=== PATIENT | male | born 1970 | race Caucasian/White ===

== ENCOUNTER 2016-12-10 15:26 | Inpatient (IN) | payer MEDICARE, SELFPAY ==
[2016-12-10 13:37] LABS: Blood Urea Nitrogen 18 mg/dL (9-20); Non-African American GFR(MDRD) >60 (>60 ml/min/1.73 sqM)
--- NOTE | 2016-12-10 14:55 | CT ---
EXAMINATION TYPE: CT chest w con DATE OF EXAM: 12/10/2016 2:13 PM COMPARISON: Previous study dated 05/31/2012. HISTORY: SOB, lung CA CT DLP: 525 mGycm Automated exposure control for dose reduction was used. CONTRAST: CT scan of the chest is performed with IV Contrast, patient injected with 100 mL of Omnipaque 300. FINDINGS: There are large bulla in the upper lobes bilaterally. There is diffuse emphysematous johnson e present. There is a left-sided pneumothorax. This is under tension. There is an air-fluid level pre sent on the left. There is worsening atelectasis at the left lung base. The third and fourth order bronchi appear atten uated. There is a 2 cm spiculated mass adjacent to the lateral chest wall on the right. The mediastinum is deviated towards the right. There is a 1.4 cm pretracheal lymph node. No definite hilar adenopathy is seen. There is no pericardi al fluid seen. Visualized portions of the upper abdomen are unremarkable. IMPRESSION: 1. Tension pneumothorax on the left. 2. Dramatic emphysematous and bullous change bilaterally. 3. Worsening left basilar atelectasis. 4. 2 cm spiculated mass adjacent to the lateral chest wall on the right. 5. Nonspecific adenopathy. A Red message has been communicated to Sandi Ortega MD via the [employer] Critical Result system on 12/10/2016 2:52 PM, Message ID [id number].
--- NOTE | 2016-12-10 16:34 | ED ---
SOB HPI - General Chief Complaint: Shortness of Breath Stated Complaint: collapsed lung-from CT Time Seen by Provider: 12/10/16 15:30 Source: patient, RN/MD, RN notes reviewed Mode of arrival: ambulatory Limitations: no limitations - History of Present Illness Initial Comments: This is a 38-year-old male with a history of esophageal cancer with resection and gastric pull-through as well as a resection of a small portion of 1 who apparently fell a popping sensation 2 days ago with some shortness of breath. He was seen by his surveying or spatial science technician today CAT scan was performed did show evidence of loculation and pneumothorax on the left lung field. Patient denies any fevers chills nausea vomiting sweats at this time he denies any cough or other symptoms at this time. He was brought over to the emergency department for further evaluation. MD Complaint: shortness of breath - Related Data Home Medications Medication Instructions Recorded Confirmed Cetirizine HCl [Zyrtec] 10 mg PO DAILY 12/10/16 12/10/16 Fluticasone/Salmeterol [Advair 1 puff INHALATION RT-DAILY 12/10/16 12/10/16 500-50 Diskus] HYDROcodone/APAP 10-325MG [[place] 1 tab PO Q6H PRN 12/10/16 12/10/16 10-325] Hydrochlorothiazide [Hydrodiuril] 25 mg PO DAILY 12/10/16 12/10/16 Ipratropium-Albuterol Nebulize 3 ml INHALATION RT-Q4H PRN 12/10/16 12/10/16 [Duoneb 0.5 mg-3 mg/3 ml Soln] Omeprazole 40 mg PO DAILY 12/10/16 12/10/16 Simvastatin [Zocor] 20 mg PO DAILY 12/10/16 12/10/16 Tiotropium 18 Mcg/Puff [Spiriva] 1 cap INHALATION RT-DAILY 12/10/16 12/10/16 Allergies Allergy/AdvReac Type Severity Reaction Status Date / Time montelukast [From Singulair] Allergy Unknown Verified 12/10/16 15:54 zafirlukast [From Accolate] Allergy Unknown Verified 12/10/16 15:54 Review of Systems ROS Statement: Those systems with pertinent positive or pertinent negative responses have been documented in the HPI. ROS Other: All systems not noted in ROS Statement are negative. 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 , collapsed lung History of Any Multi-Drug Resistant Organisms: None Reported Additional Past Surgical History / Comment(s): chest tubes for collapsed lung, eye Past Psychological History: No Psychological Hx Reported Smoking Status: Never smoker Past Alcohol Use History: Rare Past Drug Use History: None Reported General Exam - General Exam Comments Initial Comments: This is a well-developed well-nourished awake alert oriented times 3 male Limitations: no limitations General appearance: alert, anxious Head exam: Present: atraumatic, normocephalic, normal inspection Eye exam: Present: normal appearance, PERRL, EOMI. Absent: scleral icterus, conjunctival injection, periorbital swelling ENT exam: Present: normal exam, mucous membranes moist Neck exam: Present: normal inspection, other (Trachea is midline no crepitation) . Absent: tenderness, meningismus, lymphadenopathy Respiratory exam: Present: other (Markedly diminished breath sounds a left with some dullness. No tenderness palpation over the back or chest wall on my exam.) . Absent: respiratory distress, wheezes, rales, rhonchi, stridor Cardiovascular Exam: Present: regular rate, normal rhythm, normal heart sounds. Absent: systolic murmur, diastolic murmur, rubs, gallop, clicks GI/Abdominal exam: Present: soft, normal bowel sounds. Absent: distended, tenderness, guarding, rebound, rigid Extremities exam: Present: normal inspection, full ROM, normal capillary refill. Absent: tenderness, pedal edema, joint swelling, calf tenderness Back exam: Present: normal inspection Neurological exam: Present: alert, oriented X3, CN II-XII intact Psychiatric exam: Present: normal affect, normal mood Skin exam: Present: warm, dry, intact, normal color. Absent: rash Course Vital Signs 12/10/16 15:33 Temperature 98.0 F Pulse Rate 87 Respiratory 20 Rate Blood Pressure 134/82 O2 Sat by Pulse 89 L Oximetry Medical Decision Making - Medical Decision Making I did discuss the findings with the patient and with Dr. Ortega. Dr. Braswell had reviewed the CAT scan. He did discuss the case with Dr. Melendrez at [facility] patient will be admitted to this facility for observation at this time it is felt that surgical intervention is not indicated. - Lab Data Result diagrams: 12/10/16 16:40 12/10/16 13:10 Lab Results 12/10/16 12/10/16 12/10/16 Range/Units 13:10 16:40 16:40 WBC 6.9 (3.8-10.6) k/uL RBC 4.99 (4.30-5.90) m/uL Hgb 13.7 (13.0-17.5) gm/dL Hct 41.2 (39.0-53.0) % MCV 82.7 (80.0-100.0) fL MCH 27.4 (25.0-35.0) pg MCHC 33.2 (31.0-37.0) g/dL RDW 14.9 (11.5-15.5) % Plt Count 166 (150-450) k/uL Neutrophils % 64 % Lymphocytes % 18 % Monocytes % 12 % Eosinophils % 2 % Basophils % 1 % Neutrophils # 4.4 (1.3-7.7) k/uL Lymphocytes # 1.2 (1.0-4.8) k/uL Monocytes # 0.9 (0-1.0) k/uL Eosinophils # 0.1 (0-0.7) k/uL Basophils # 0.1 (0-0.2) k/uL PT (9.0-12.0) sec INR (<1.1) APTT (22.0-30.0) sec BUN 18 (9-20) mg/dL Creatinine 0.64 L (0.66-1.25) mg/dL Est GFR (MDRD) Af Amer >60 (>60 ml/min/1.73 sqM) Est GFR (MDRD) Non-Af >60 (>60 ml/min/1.73 sqM) Magnesium (1.6-2.3) mg/dL Total Creatine Kinase 26 L (55-170) U/L CK-MB (CK-2) 0.3 (0.0-2.4) ng/mL CK-MB (CK-2) Rel Index 1.2 12/10/16 12/10/16 Range/Units 16:40 16:49 WBC (3.8-10.6) k/uL RBC (4.30-5.90) m/uL Hgb (13.0-17.5) gm/dL Hct (39.0-53.0) % MCV (80.0-100.0) fL MCH (25.0-35.0) pg MCHC (31.0-37.0) g/dL RDW (11.5-15.5) % Plt Count (150-450) k/uL Neutrophils % % Lymphocytes % % Monocytes % % Eosinophils % % Basophils % % Neutrophils # (1.3-7.7) k/uL Lymphocytes # (1.0-4.8) k/uL Monocytes # (0-1.0) k/uL Eosinophils # (0-0.7) k/uL Basophils # (0-0.2) k/uL PT 10.9 (9.0-12.0) sec INR 1.1 (<1.1) APTT 19.9 L (22.0-30.0) sec BUN (9-20) mg/dL Creatinine (0.66-1.25) mg/dL Est GFR (MDRD) Af Amer (>60 ml/min/1.73 sqM) Est GFR (MDRD) Non-Af (>60 ml/min/1.73 sqM) Magnesium 1.9 (1.6-2.3) mg/dL Total Creatine Kinase (55-170) U/L CK-MB (CK-2) (0.0-2.4) ng/mL CK-MB (CK-2) Rel Index - Radiology Data Radiology results: report reviewed (I did review the imaging there is evidence of left-sided tension pneumothorax and 7 simple changes bilaterally left basilar atelectasis 2 cm spiculated mass adjacent to the lateral chest wall in the right nonspecific adenopathy.), image reviewed Disposition Clinical Impression: Pneumothorax on left, Lung mass, Hypoxemia Disposition: ADMITTED IP TO THIS [facility] Condition: Stable Referrals: Manjeet Ornelas MD [Primary Care Provider] - 1-2 days
[2016-12-10 16:54] LABS: Basophils # (A) 0.1 k/uL (0-0.2); Basophils % (A) 1 %; CH 27.2; Eosinophils # (A) 0.1 k/uL (0-0.7); Eosinophils % (A) 2 %; HCT 41.2 % (39.0-53.0); HDW 2.75; HGB 13.7 gm/dL (13.0-17.5); Luc # (Auto) 0.29; Luc % (Auto) 4; Lymphocytes # (A) 1.2 k/uL (1.0-4.8); Lymphocytes % (A) 18 %; MCH 27.4 pg (25.0-35.0); MCHC 33.2 g/dL (31.0-37.0); MCV 82.7 fL (80.0-100.0); Mean Platelet Volume 7.4; Monocytes # (A) 0.9 k/uL (0-1.0); Monocytes % (A) 12 %; Neutrophils # (A) 4.4 k/uL (1.3-7.7); Neutrophils % (A) 64 %; RBC 4.99 m/uL (4.30-5.90); RDW 14.9 % (11.5-15.5); WBC 6.9 k/uL (3.8-10.6); WBC (Perox) 6.93
[2016-12-10 17:09] LABS: INR 1.1 (<1.1); Prothrombin Time 10.9 sec (9.0-12.0)
[2016-12-10 17:29] LABS: Creatine Kinase MB 0.3 ng/mL (0.0-2.4)
[2016-12-10 17:43] LABS: Partial Thromboplastin Time 19.9 sec (22.0-30.0)
[2016-12-10] MEDS ORDERED: NALOXONE 0.4 MG/ML 1 ML VIAL IV PRN (19:00)
[2016-12-10] MEDS ORDERED: SODIUM CHLORIDE 0.9% 1,000 ML IV SCH (19:00)
[2016-12-10] MEDS: HYDROcodone/APAP 10-325MG 1 EACH TAB PO PRN (20:40)
[2016-12-10 21:31] LABS: Glucose,Whole Blood 145 mg/dL (75-99)
[2016-12-10] MEDS: IPRATROPIUM-ALBUTEROL 3 ML NEB INHALATION SCH ×2 (21:32→23:44)
[2016-12-10 21:34] VITALS: BMI 22.4
[2016-12-11] MEDS: HYDROcodone/APAP 10-325MG 1 EACH TAB PO PRN ×3 (01:44→14:13)
[2016-12-11] MEDS: IPRATROPIUM-ALBUTEROL 3 ML NEB INHALATION SCH ×3 (03:22→11:09)
[2016-12-11 05:07] LABS: Aty Lym Flag Slight; CH 27.2; CHCM 32.8; HCT 37.7 % (39.0-53.0); HDW 2.73; HGB 12.3 gm/dL (13.0-17.5); MCH 27.3 pg (25.0-35.0); MCHC 32.7 g/dL (31.0-37.0); MCV 83.3 fL (80.0-100.0); Mean Platelet Volume 7.5; RBC 4.53 m/uL (4.30-5.90); WBC 4.2 k/uL (3.8-10.6); WBC (Perox) 4.48
[2016-12-11 05:24] LABS: Anion Gap 10 mmol/L; Blood Urea Nitrogen 15 mg/dL (9-20); Calcium 8.9 mg/dL (8.4-10.2); Carbon Dioxide 28 mmol/L (22-30); Chloride 102 mmol/L (98-107); Glucose 118 mg/dL (74-99); Magnesium 1.9 mg/dL (1.6-2.3); Non-African American GFR(MDRD) >60 (>60 ml/min/1.73 sqM); Phosphorous 4.7 mg/dL (2.5-4.5); Potassium 3.2 mmol/L (3.5-5.1); Sodium 140 mmol/L (137-145)
[2016-12-11 05:46] LABS: Add Differential Manual Differential
[2016-12-11] MEDS ORDERED: Magnesium Replacement Protocol 1 EACH MISC MISCELLANE PRN (05:48)
[2016-12-11] MEDS ORDERED: Potassium Replacement Protocol 1 EACH MISC MISCELLANE PRN (05:48)
[2016-12-11 05:49] LABS: Manual Review Performed; Nucleated Red Blood Cells 0 /100 WBC (0-0); Reactive Lymphocytes Present; Total Cells Counted 100
[2016-12-11] MEDS: MAGNESIUM SULFATE-D5W PMX 1 GM in DEXTROSE/WATER 1 100ML.BAG IVPB SCH ×2 (06:07→08:04)
[2016-12-11] MEDS: POTASSIUM CHLORIDE ER 20 MEQ TAB.ER PO SCH ×2 (06:07→08:04)
[2016-12-11] MEDS ORDERED: PANTOPRAZOLE 40 MG TABLET PO SCH (07:30)
[2016-12-11] MEDS ORDERED: TIOTROPIUM 18 MCG/PUFF INHALER INHALATION SCH (08:00)
[2016-12-11] MEDS ORDERED: SYMBICORT 160-4.5 MCG INHALER INHALATION SCH (08:00)
--- NOTE | 2016-12-11 08:37 | XR ---
EXAMINATION TYPE: XR chest 1V DATE OF EXAM: 12/11/2016 6:47 AM COMPARISON: Prior chest x-ray and chest CT November HISTORY: Pneumothorax TECHNIQUE: Single frontal view of the chest is obtained. FINDINGS: Patient's left-sided hydropneumothorax is again noted. Extensive bullous emphysematous justen nges are present bilaterally. Pneumoperitoneum is not seen on plain film. Right-sided emphysematous c hanges and Port-A-Cath are again noted. Difficult to exclude some mediastinal shift. Diaphragmatic he rnia with bowel noted in the left hemithorax. IMPRESSION: Hydropneumothorax, correlate for possible tension pneumothorax. Pneumoperitoneum noted o n patient's chest CT November may be due to diaphragmatic defect and communication with the pleural space, hydropneumothorax. Diaphragmatic hernia changes are present which may be postoperativ e.
[2016-12-11] MEDS ORDERED: ATORVASTATIN 10 MG TAB PO SCH (09:00)
[2016-12-11] MEDS ORDERED: LORATADINE 10 MG TAB PO SCH (09:00)
[2016-12-11] MEDS ORDERED: HYDROCHLOROTHIAZIDE 25 MG TAB PO SCH (09:00)
--- NOTE | 2016-12-11 10:57 | P.CNPUL ---
History of Present Illness Consult date: 12/11/16 Requesting physician: Manjeet Ornelas Reason for consult: abnormal CXR/CT Chief complaint: Left-sided chest pain History of present illness: This is a very pleasant 46-year-old gentleman who follows with Dr. Ornelas as his primary care physician. He has a history of hyperlipidemia and hypertension. He also follows with Dr. Ortega in our office for severe oxygen dependent chronic obstructive pulmonary disease with an FEV1 value of 32% of predicted. He had been maintained on Spiriva Symbicort and albuterol.. 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 He also had systemic chemotherapy in the form of cisplatinum and leucovorin. He had been doing fairly well and was following up with Dr. Melendrez at [facility]. A PET scan revealed a 1.3 cm right mid lung nodule suspicious for malignancy and the patient is now receiving targeted therapy per Dr. Carmona in the form of crizotinib (Xalkori). He had been doing fairly well until this past weekend 12/06/2016 where he was sleeping in a chair and woke up and felt a sudden pop in his left chest with significant discomfort. This did go on into Wednesday morning the and subsequently subsided. He had an appointment with Dr. Carmona yesterday and explained his symptoms. He was sent for a chest x-ray revealed a massive emphysematous change in the left lung with air-filled levels. There was questioning me pleural line within the left apical region extending along the left mid lung zone and was suspicious for loculated pneumothorax. Following that he had a computed tomography scan of the chest which revealed a suspected tension pneumothorax on the left, dramatic and for somatic embolus changes bilaterally, worsening left basilar atelectasis, 2 cm spiculated mass adjacent to the lateral Wall on the right and nonspecific adenopathy. This was reviewed by Dr. Ortega who directed the patient to the emergency room. Dr. Ortega had spoken to Dr. Jair Melendrez at [facility] who is familiar with the patient's case as well and felt the best treatment would be careful observation but no plans for any intervention. He is seen today in consultation in the intensive care unit. The patient has been stable. He is maintaining good O2 saturations in the 90s on 2 L/m per nasal cannula. He's been hemodynamically stable. He denies any worsening shortness of breath or discomfort. Review of Systems Team point review of system was conducted. All negative other than as mentioned in HPI. 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 , collapsed lung History of Any Multi-Drug Resistant Organisms: None Reported Additional Past Surgical History / Comment(s): chest tubes for collapsed lung, eye, removal of part of R lung and esophagectomy Past Anesthesia/Blood Transfusion Reactions: No Reported Reaction Past Psychological History: No Psychological Hx Reported Smoking Status: Former smoker Past Alcohol Use History: Rare Past Drug Use History: None Reported Medications and Allergies Home Medications Medication Instructions Recorded Confirmed Type Cetirizine HCl [Zyrtec] 10 mg PO DAILY 12/10/16 12/10/16 History Fluticasone/Salmeterol [Advair 1 puff INHALATION RT-DAILY 12/10/16 12/10/16 History 500-50 Diskus] HYDROcodone/APAP 10-325MG [[place] 1 tab PO Q6H PRN 12/10/16 12/10/16 History 10-325] Hydrochlorothiazide [Hydrodiuril] 25 mg PO DAILY 12/10/16 12/10/16 History Ipratropium-Albuterol Nebulize 3 ml INHALATION RT-Q4H PRN 12/10/16 12/10/16 History [Duoneb 0.5 mg-3 mg/3 ml Soln] Omeprazole 40 mg PO DAILY 12/10/16 12/10/16 History Simvastatin [Zocor] 20 mg PO DAILY 12/10/16 12/10/16 History Tiotropium 18 Mcg/Puff [Spiriva] 1 cap INHALATION RT-DAILY 12/10/16 12/10/16 History Allergies Allergy/AdvReac Type Severity Reaction Status Date / Time montelukast [From Singulair] Allergy Unknown Verified 12/10/16 15:54 zafirlukast [From Accolate] Allergy Unknown Verified 12/10/16 15:54 Physical Exam Vitals: Vital Signs Temp Pulse Pulse Resp BP BP Pulse Ox 12/11/16 09:00 71 17 137/81 99 12/11/16 08:00 90 23 107/67 98 12/11/16 07:38 66 12/11/16 07:28 65 12/11/16 07:00 97.4 F L 60 22 93/64 100 12/11/16 06:00 58 L 15 86/59 99 12/11/16 05:00 58 L 16 90/55 99 12/11/16 04:00 98.6 F 67 77 16 85/57 98 12/11/16 03:34 67 12/11/16 03:22 65 12/11/16 03:00 59 L 17 85/58 99 12/11/16 02:00 52 L 13 85/57 99 12/11/16 01:00 66 18 93/53 98 12/11/16 00:00 98.6 F 66 77 25 H 100/61 97 12/10/16 23:55 69 12/10/16 23:46 69 12/10/16 23:17 58 L 18 100/61 98 12/10/16 23:00 62 18 109/68 98 12/10/16 22:00 72 19 113/74 97 12/10/16 21:45 84 12/10/16 21:32 82 12/10/16 21:00 98.1 F 85 20 127/81 97 12/10/16 20:30 77 18 12/10/16 20:04 70 17 12/10/16 19:27 98.1 F 77 18 113/74 98 12/10/16 19:14 98 F 64 20 154/81 100 Intake and Output 12/10/16 12/11/16 12/11/16 22:59 06:59 14:59 Intake Total 20 400 140 Output Total 200 750 250 Balance -180 -350 -110 Intake: Intake, IV Titration 20 160 140 Amount Magnesium Sulfate-D5w Pmx 100 1 gm In Dextrose/Water 1 100ml.bag @ 100 mls/hr IVPB Q1H JOSE Rx#: [id number] Sodium Chloride 0.9% 1, 20 160 40 000 ml @ 20 mls/hr IV . Q24H JOSE Rx#:[id number] Oral 240 Output: Urine 200 750 250 Other: Voiding Method Urinal Urinal Urinal Weight 70.9 kg 70.9 kg GENERAL EXAM: Alert, fairly comfortable in no apparent distress. HEAD: Normocephalic. EYES: Normal reaction of pupils, equal size. NOSE: Clear with pink turbinates. THROAT: No erythema or exudates. NECK: No masses, no JVD. CHEST: No chest wall deformity. LUNGS: Diminished bilaterally more so on the left lung, crackles in the left lung base. CVS: S1 and S2 normal with no audible murmurs, regular rhythm. ABDOMEN: No hepatosplenomegaly, normal bowel sounds, no guarding or rigidity. SPINE: No scoliosis or deformity SKIN: No rashes CENTRAL NERVOUS SYSTEM: No focal deficits, tone is normal in all 4 extremities. Extremities: There is no significant peripheral edema. No clubbing, no cyanosis. Peripheral pulses are intact. Results - Laboratory Findings CBC and BMP: 12/11/16 04:39 12/11/16 04:39 PT/INR, D-dimer PT 10.9 sec (9.0-12.0) 12/10/16 16:49 INR 1.1 (<1.1) 12/10/16 16:49 Abnormal lab findings: Abnormal Labs 12/10/16 12/11/16 12/11/16 21:29 04:39 04:39 Hgb 12.3 L Hct 37.7 L Plt Count 148 L Potassium 3.2 L Glucose 118 H POC Glucose (mg/dL) 145 H Phosphorus 4.7 H - Diagnostic Findings Chest x-ray: image reviewed CT scan - chest: image reviewed Assessment and Plan Plan: Impression: #1 Left-sided chest discomfort and shortness of breath secondary to severe bullous emphysema with loculated pneumothorax and fluid volume level with evidence of dramatic symptomatic bullous changes bilaterally. There is left basilar atelectasis. #2 2 cm spiculated mass adjacent to the left chest wall on the right with nonspecific adenopathy currently receiving targeted therapy in the form of crizotinib/Xalkori. 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 Also right upper lobe lesion that status post wedge resection in November 2015. #4 Severe Gold stage III/for chronic obstructive pulmonary disease with FEV1 value 32% of predicted. #5 Hyperlipidemia. #6 Hypertension. 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 Plan: The patient was seen and evaluated by Dr. Patrick. His chest x-ray and CAT scans were reviewed. The plan is for continued observation without any surgical intervention at this time. He is stable I'll be transferred out of the intensive care unit to the regular medical floor today. We'll continue with his current medications. We'll increase his activity as tolerated. We'll continue to follow. The patient is cautioned regarding any heavy lifting or breath holding for any reason.
[2016-12-11 12:42] VITALS: TEMP 98.1
[2016-12-11 14:30] VITALS: BP 133/84; PULSE 92; RESP 18
--- NOTE | 2016-12-11 14:39 | P.HPIM ---
History of Present Illness H&P Date: 12/11/16 Chief Complaint: Tension pneumothorax, advanced COPD, esophageal cancer, hypertension, hyper 46-year-old pleasant gentleman one of my office patient of known for 18 years was seen pulmonary Dr[address] Ortega on regular basis has been seen Dr. Pimentel oncology on regular basis as well. Patient had long-standing history of recurrent pneumothorax with bulla on the surface part of the lung specially the left side had it rupture last time back in 2001 and patient was evaluated that time in [facility] for possibility of lung transplant. Patient has been on disability has not gone back to work since and was very careful so he hasn't had any problem for long time. Patient was diagnosed with esophageal cancer through workup led by the fact that he was having mild dysphagia and significant weight loss his EGD came back positive he ended up going to [facility] had a resection with gastric pull-through and wedge resection of the right upper lobe that was positive for cancer about a year early. Procedure done by Dr. Melendrez at [facility]. Patient was sent back to Dr. Pimentel for chemotherapy which patient has been on since. Patient PET scan last time revealed 1.3 cm nodular in the mid right lung suspicious for malignancy Dr. Pimentel had him on Xalkori chemo. Patient is doing well until 12/06/2016 when he was sleeping in the chair he woke up and felt something pop in the left side of his chest wall with significant discomfort. He waited till Wednesday morning on December 07 when he developed to have significant left-sided pain he was seen Dr. Pimentel and order chest x-ray which revealed massive emphysematous change in the lung with air-filled level consistent with tension pneumothorax. Patient ended up going to see Dr. Golden in and CAT scan of the lung was performed showed large pneumothorax. Apparently Dr. Ortega have spoken with Dr. Melendrez at [facility] who felt at this point he is negative do any's think surgical. Patient was hospitalized through the night in the ICU has been comfortable but his large pneumothorax with tension and slight increase expansion. Talking to pulmonary and tachycardia to the patient felt for patient's best interest that to have him transferred to [facility] because if this pneumothorax and large located related bulla was 2 rupture patient most likely will decline hemodynamically through degree to transfer him to have before the Doppler point would be impossible. We'll contact [facility] transplant team and try to transfer patient to [facility] today 12/11/2016. Review of Systems Constitutional: Reports anorexia, Reports fatigue, Reports lethargy, Reports night sweats, Reports weight loss, Denies as per HPI, Denies chills, Denies chronic headaches, Denies chronic pain, Denies daytime sleepiness, Denies fever , Denies malaise, Denies poor appetite, Denies sweats, Denies weakness, Denies weight gain Eyes: bilateral as per HPI Ears: bilateral: decreased hearing Ears, nose, mouth and throat: Reports ant. neck pain, Reports nasal congestion, Reports sinus pain, Reports sinus pressure, Reports swelling in mouth, Denies as per HPI, Denies bleeding gums, Denies dental pain, Denies dysphagia, Denies epistaxis, Denies headache, Denies hoarseness, Denies mouth pain, Denies nasal discharge, Denies neck fullness/pressure, Denies neck lump, Denies nose pain, Denies odynophagia, Denies post-nasal drip, Denies swelling in throat, Denies sore throat, Denies vertigo, Denies voice changes Cardiovascular: Reports chest pain, Reports claudication, Reports decreased exercise tolerance, Reports dyspnea on exertion, Reports edema, Reports high blood pressure, Reports irregular heart beat, Reports lightheadedness, Reports orthopnea, Reports paroxysmal nocturnal dyspnea, Reports rapid heart beat, Reports shortness of breath, Denies as per HPI, Denies leg edema, Denies palpitations, Denies phlebitis, Denies syncope Respiratory: Reports congestion, Reports cough, Reports dyspnea, Reports pain on inspiration, Denies as per HPI, Denies cough with sputum, Denies excessive sputum, Denies hemoptysis, Denies home oxygen, Denies pain, Denies pleurisy, Denies respiratory infections, Denies sleep apnea, Denies snoring, Denies wheezing Gastrointestinal: Reports abdominal pain, Reports bloating, Reports dyspepsia, Reports indigestion, Reports nausea, Denies as per HPI, Denies belching, Denies BRBPR, Denies change in bowel habits, Denies coffee ground emesis, Denies constipation, Denies diarrhea, Denies early satiety, Denies excessive gas, Denies heartburn, Denies hematemesis, Denies hematochezia, Denies jaundice, Denies lactose intolerance, Denies loss of appetite, Denies melena, Denies vomiting Genitourinary: Reports incontinence, Reports polyuria, Reports urinary frequency , Denies as per HPI, Denies decreased libido, Denies difficulties fathering child, Denies discharge, Denies dysuria, Denies erectile dysfunction, Denies flank pain, Denies genital pain, Denies genital sores, Denies hematuria, Denies impotence, Denies kidney stones, Denies nocturia, Denies testicular lump, Denies testicular pain, Denies urinary hesitancy, Denies urinary retention Musculoskeletal: Reports loss of height, Reports low back pain, Reports myalgias , Reports neck pain, Reports neck stiffness, Denies as per HPI, Denies arm numbness/tingling, Denies atrophy, Denies fractures, Denies frequent falls, Denies gait dysfunction, Denies hot joints, Denies leg numbness/tingling, Denies limitation of motion, Denies morning stiffness, Denies muscle cramps, Denies muscle weakness, Denies prior amputations, Denies redness of joints, Denies shooting arm pain, Denies shooting leg pain Musculoskeletal: bilateral: ankle pain Integumentary: Reports pruritus, Reports rash, Denies as per HPI, Denies acne, Denies boils, Denies brittle nails, Denies change in hair/nails, Denies color changes, Denies darkening of skin, Denies depigmentation, Denies dryness, Denies foot/leg ulcers, Denies growths, Denies hirsutism, Denies lesions, Denies onychomycosis, Denies sores, Denies striae, Denies unusual bruising, Denies wounds Neurological: Denies as per HPI, Denies aphasia, Denies ataxia, Denies balance difficulties, Denies burning pain, Denies change in mentation, Denies change in smell/taste, Denies change in speech, Denies confusion, Denies convulsions, Denies double vision, Denies gait dysfunction, Denies head injury, Denies headaches, Denies hearing difficulties, Denies lack of coordination, Denies loss of vision, Denies memory loss, Denies migraines, Denies motor disturbance, Denies numbness, Denies paralysis, Denies paresthesias, Denies seizures, Denies sensory deficit, Denies spasticity, Denies syncope, Denies tic, Denies tingling , Denies transient paralysis, Denies tremors, Denies vertigo, Denies weakness, Denies visual changes Psychiatric: Reports anhedonia, Reports depression, Reports mood swings, Reports sadness/tearfulness, Denies as per HPI, Denies anxiety, Denies anxiety attacks, Denies change in appetite, Denies change in libido, Denies change in sleep habits, Denies confusion, Denies difficulty concentrating, Denies disorientation, Denies hallucinations, Denies hopelessness, Denies hypersomnia, Denies insomnia, Denies irritability, Denies memory loss, Denies paranoia, Denies sleep disturbances, Denies suicidal ideation Endocrine: Reports cold intolerance, Reports fatigue, Denies as per HPI, Denies deepening of the voice, Denies excessive sweating, Denies excessive thirst, Denies flushing, Denies heat intolerance, Denies high blood sugars, Denies increase in ring/shoe/hat size, Denies low blood sugars, Denies nocturia, Denies palpitations, Denies polydipsia, Denies polyphagia, Denies polyuria, Denies proptosis, Denies recent glucocorticoid use, Denies thyroid mass, Denies weight change Hematologic/Lymphatic: Reports easy bruising, Denies as per HPI, Denies easy bleeding, Denies lymphadenopathy, Denies lymphedema, Denies thrombophilia Allergic/Immunologic: Reports allergic rhinitis, Denies as per HPI, Denies anaphylaxis, Denies angioedema, Denies gluten intolerance, Denies persistent infections, Denies seasonal allergies, Denies urticaria, Denies wheezing Past Medical History Past Medical History: Cancer, Chest Pain / Angina, GERD/Reflux, Hyperlipidemia, Hypertension, Liver Disease, Musculoskeletal Disorder, Respiratory Disorder, Supraventricular Tachycardia (SVT) Additional Past Medical History / Comment(s): 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 , collapsed lung History of Any Multi-Drug Resistant Organisms: None Reported Additional Past Surgical History / Comment(s): chest tubes for collapsed lung, eye, removal of part of R lung and esophagectomy Past Anesthesia/Blood Transfusion Reactions: No Reported Reaction Past Psychological History: No Psychological Hx Reported Smoking Status: Former smoker Past Alcohol Use History: Rare Past Drug Use History: None Reported Medications and Allergies Home Medications Medication Instructions Recorded Confirmed Type Cetirizine HCl [Zyrtec] 10 mg PO DAILY 12/10/16 12/10/16 History Fluticasone/Salmeterol [Advair 1 puff INHALATION RT-DAILY 12/10/16 12/10/16 History 500-50 Diskus] HYDROcodone/APAP 10-325MG [[place] 1 tab PO Q6H PRN 12/10/16 12/10/16 History 10-325] Hydrochlorothiazide [Hydrodiuril] 25 mg PO DAILY 12/10/16 12/10/16 History Ipratropium-Albuterol Nebulize 3 ml INHALATION RT-Q4H PRN 12/10/16 12/10/16 History [Duoneb 0.5 mg-3 mg/3 ml Soln] Omeprazole 40 mg PO DAILY 12/10/16 12/10/16 History Simvastatin [Zocor] 20 mg PO DAILY 12/10/16 12/10/16 History Tiotropium 18 Mcg/Puff [Spiriva] 1 cap INHALATION RT-DAILY 12/10/16 12/10/16 History Allergies Allergy/AdvReac Type Severity Reaction Status Date / Time montelukast [From Singulair] Allergy Unknown Verified 12/10/16 15:54 zafirlukast [From Accolate] Allergy Unknown Verified 12/10/16 15:54 Physical Exam Vitals: Vital Signs Temp Pulse Pulse Resp BP BP Pulse Ox 12/11/16 11:10 77 12/11/16 09:00 71 17 137/81 99 12/11/16 08:00 90 23 107/67 98 12/11/16 07:38 66 12/11/16 07:28 65 12/11/16 07:00 97.4 F L 60 22 93/64 100 12/11/16 06:00 58 L 15 86/59 99 12/11/16 05:00 58 L 16 90/55 99 12/11/16 04:00 98.6 F 67 77 16 85/57 98 12/11/16 03:34 67 12/11/16 03:22 65 12/11/16 03:00 59 L 17 85/58 99 12/11/16 02:00 52 L 13 85/57 99 12/11/16 01:00 66 18 93/53 98 12/11/16 00:00 98.6 F 66 77 25 H 100/61 97 12/10/16 23:55 69 12/10/16 23:46 69 12/10/16 23:17 58 L 18 100/61 98 12/10/16 23:00 62 18 109/68 98 12/10/16 22:00 72 19 113/74 97 12/10/16 21:45 84 12/10/16 21:32 82 12/10/16 21:00 98.1 F 85 20 127/81 97 12/10/16 20:30 77 18 12/10/16 20:04 70 17 12/10/16 19:27 98.1 F 77 18 113/74 98 12/10/16 19:14 98 F 64 20 154/81 100 Intake and Output 12/10/16 12/11/16 12/11/16 22:59 06:59 14:59 Intake Total 20 400 140 Output Total 200 750 250 Balance -180 -350 -110 Intake: Intake, IV Titration 20 160 140 Amount Magnesium Sulfate-D5w Pmx 100 1 gm In Dextrose/Water 1 100ml.bag @ 100 mls/hr IVPB Q1H JOSE Rx#: [id number] Sodium Chloride 0.9% 1, 20 160 40 000 ml @ 20 mls/hr IV . Q24H JOSE Rx#:[id number] Oral 240 Output: Urine 200 750 250 Other: Voiding Method Urinal Urinal Urinal Weight 70.9 kg 70.9 kg - Constitutional General appearance: no average body habitus, cooperative, disheveled, mild distress, no morbidly obese, no no acute distress, no obese, no severe distress , no thin - EENT Eyes: no abnormal pupil, no anicteric sclerae, no disc margins sharp, no edentulous, no EOMI, no PERRLA, no fundus normal, no photophobia, no dentition normal, no poor dentition, no ptosis, no scleral icterus, normal appearance ENT: no hard of hearing, no hearing grossly normal, no NA/AT, no normal oropharynx, no other, pharyngeal erythema, no thrush, no tonsillar exudates, no tonsillar swelling Ears: bilateral: normal - Neck Neck: no lymphadenopathy, normal ROM, no other, no rigidity, no stridor, no thyromegaly Carotids: bilateral: upstroke normal, upstroke delayed Thyroid: bilateral: normal size - Respiratory Respiratory: left: diminished, dullness, bilateral: rhonchi, wheezing, prolonged expiration, prolonged inspiration - Cardiovascular Rhythm: regular Heart sounds: normal: S1, S2 Abnormal Heart Sounds: systolic murmur, S3 Gallop - Gastrointestinal General gastrointestinal: no absent bowel sounds, decreased bowel sounds, distended, no hepatomegaly, no hyperactive bowel sounds, no normal bowel sounds , no organomegaly, no rigid, no scaphoid, soft, no splenomegaly, no tenderness, no umbilical hernia, no ventral hernia - Integumentary Integumentary: no calor, no cellulitis, no cyanotic, no decreased turgor, no flushed, no jaundiced, normal, no normal turgor, pale, rash, no ulcer - Neurologic Neurologic: CNII-XII intact - Musculoskeletal Musculoskeletal: gait normal, generalized weakness, strength equal bilaterally, no right sided weakness, no left sided weakness - Psychiatric Psychiatric: A&O x's 3, appropriate affect Results CBC & Chem 7: 12/11/16 04:39 12/11/16 04:39 Labs: Abnormal Lab Results - Last 24 Hours (Table) 12/10/16 12/11/16 12/11/16 Range/Units 21:29 04:39 04:39 Hgb 12.3 L (13.0-17.5) gm/dL Hct 37.7 L (39.0-53.0) % Plt Count 148 L (150-450) k/uL Potassium 3.2 L (3.5-5.1) mmol/L Glucose 118 H (74-99) mg/dL POC Glucose (mg/dL) 145 H (75-99) mg/dL Phosphorus 4.7 H (2.5-4.5) mg/dL Thrombosis Risk Factor Assmnt - DVT/VTE Prophylaxis DVT/VTE Prophylaxis: Pharmacologic Prophylaxis ordered, Mechanical Prophylaxis ordered - Choose All That Apply Any of the Below Risk Factors Present?: Yes Each Factor Represents 1 point: Age 41-60 years, Medical pt on bed rest Other Risk Factors: Yes Each Risk Factor Represents 2 Points: Patient confined to bed Other congenital or acquired thrombophilia - If yes, enter type in comment: No Thrombosis Risk Factor Assessment Total Risk Factor Score: 4 Thrombosis Risk Factor Assessment Level: Moderate Risk Assessment and Plan Plan: 1 left side tension pneumothorax severe large happen from severe bullous emphysema with rupture one of the bulla on the surface causing the tension pneumothorax this time. No chest tube was placed at this point for patient's best interest specially with his current circumstances patient will be transferred to [facility] for initially conservative management and aggressive thoracic surgery management if the problem become worse. 2 S[place] 1 adenocarcinoma of the esophagus junction post neoadjuvant therapy followed by resection and gastric pull-through follow by systemic chemotherapy. Patient still seen oncology on regular basis. 3 spiculated mass measured 2 cm in the left chest wall has been seen pulmonary and oncology. 4 advance stage III COPD with FEV1 at 32% only: Patient has been on oxygen along with updraft treatment regularly and steroids. 5 hypertension: Has been on Hydrea diarrheal only. 6 hyperlipidemia: Continue Zocor at 20 mg daily. 7 Severe GERD beside his is off she is cancer: Patient has been on omeprazole 40 mg daily. 8 severe ALLERGY: Patient to continue Zyrtec or Claritin daily. 9 chronic pain management: Has been on hydrocodone as needed. 10 DVT prophylaxis: Patient will be on heparin subcutaneous. CODE STATUS: Full code. Expectation from this admission: Patient be in the hospital for more than 2 nights.
--- NOTE | 2016-12-11 14:50 | P.CONS ---
History of Present Illness - Reason for Consult Consult date: 12/11/16 - History of Present Illness The patient is a 46-year-old gentleman, well-known to our service. He is followed by Dr. cooley in the outpatient setting. 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 He was treated with the chemoradiation, and then underwent surgery with the Dr. Osorio at [facility]. At the time of surgery, he was found to have an additional lung nodule that was resected, positive for metastatic disease confirming stage IV cancer. He was then on treatment with FOLFOX until 06/28. At that time treatment was stopped because of progressive neuropathy. He was found to have progression on PET scan in 10/30. He started monoclonal antibody therapy with Cyramza with first dose given last week. He was seen in the office yesterday, complaining of increased shortness of breath and chest discomfort. On exam, breath sounds were diminished on the left side. He had a chest x-ray done, that showed evidence of pneumothorax on the left. The patient was therefore admitted for further management. The case was discussed by pulmonary medicine, with his surgeon at [facility], and observation was initially recommended. Review of Systems Constitutional: Reports fatigue, Reports weakness Eyes: denies blurred vision, denies pain Ears, nose, mouth and throat: Denies headache, Denies sore throat Cardiovascular: Reports chest pain, Reports shortness of breath Respiratory: Reports dyspnea Gastrointestinal: Denies abdominal pain, Denies diarrhea, Denies nausea, Denies vomiting Genitourinary: Reports as per HPI (No specific complaints) Musculoskeletal: Denies myalgias Integumentary: Denies pruritus, Denies rash Neurological: Reports paresthesias, Reports tingling Psychiatric: Denies anxiety, Denies depression Endocrine: Denies fatigue, Denies weight change Hematologic/Lymphatic: Reports as per HPI Past Medical History Past Medical History: Cancer, Chest Pain / Angina, GERD/Reflux, Hyperlipidemia, Hypertension, Liver Disease, Musculoskeletal Disorder, Respiratory Disorder, Supraventricular Tachycardia (SVT) Additional Past Medical History / Comment(s): 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 , collapsed lung History of Any Multi-Drug Resistant Organisms: None Reported Additional Past Surgical History / Comment(s): chest tubes for collapsed lung, eye, removal of part of R lung and esophagectomy Past Anesthesia/Blood Transfusion Reactions: No Reported Reaction Past Psychological History: No Psychological Hx Reported Smoking Status: Former smoker Past Alcohol Use History: Rare Past Drug Use History: None Reported Medications and Allergies Home Medications Medication Instructions Recorded Confirmed Type Cetirizine HCl [Zyrtec] 10 mg PO DAILY 12/10/16 12/10/16 History Fluticasone/Salmeterol [Advair 1 puff INHALATION RT-DAILY 12/10/16 12/10/16 History 500-50 Diskus] HYDROcodone/APAP 10-325MG [[place] 1 tab PO Q6H PRN 12/10/16 12/10/16 History 10-325] Hydrochlorothiazide [Hydrodiuril] 25 mg PO DAILY 12/10/16 12/10/16 History Ipratropium-Albuterol Nebulize 3 ml INHALATION RT-Q4H PRN 12/10/16 12/10/16 History [Duoneb 0.5 mg-3 mg/3 ml Soln] Omeprazole 40 mg PO DAILY 12/10/16 12/10/16 History Simvastatin [Zocor] 20 mg PO DAILY 12/10/16 12/10/16 History Tiotropium 18 Mcg/Puff [Spiriva] 1 cap INHALATION RT-DAILY 12/10/16 12/10/16 History Allergies Allergy/AdvReac Type Severity Reaction Status Date / Time montelukast [From Singulair] Allergy Unknown Verified 12/10/16 15:54 zafirlukast [From Accolate] Allergy Unknown Verified 12/10/16 15:54 Physical Exam Vitals: Vital Signs Temp Pulse Pulse Resp BP BP Pulse Ox 12/11/16 14:00 92 18 133/84 98 12/11/16 13:00 80 18 110/65 97 12/11/16 12:00 98.1 F 84 16 111/77 97 12/11/16 11:20 78 12/11/16 11:10 77 12/11/16 11:00 78 16 116/73 96 12/11/16 10:00 69 18 107/63 98 12/11/16 09:00 71 17 137/81 99 12/11/16 08:00 90 23 107/67 98 12/11/16 07:38 66 12/11/16 07:28 65 12/11/16 07:00 97.4 F L 60 22 93/64 100 12/11/16 06:00 58 L 15 86/59 99 12/11/16 05:00 58 L 16 90/55 99 12/11/16 04:00 98.6 F 67 77 16 85/57 98 12/11/16 03:34 67 12/11/16 03:22 65 12/11/16 03:00 59 L 17 85/58 99 12/11/16 02:00 52 L 13 85/57 99 12/11/16 01:00 66 18 93/53 98 12/11/16 00:00 98.6 F 66 77 25 H 100/61 97 12/10/16 23:55 69 12/10/16 23:46 69 12/10/16 23:17 58 L 18 100/61 98 12/10/16 23:00 62 18 109/68 98 12/10/16 22:00 72 19 113/74 97 12/10/16 21:45 84 12/10/16 21:32 82 12/10/16 21:00 98.1 F 85 20 127/81 97 12/10/16 20:30 77 18 12/10/16 20:04 70 17 12/10/16 19:27 98.1 F 77 18 113/74 98 12/10/16 19:14 98 F 64 20 154/81 100 Intake and Output 12/10/16 12/11/16 12/11/16 22:59 06:59 14:59 Intake Total 20 400 240 Output Total 135 146 5657 Balance -180 -350 -860 Intake: Intake, IV Titration 20 160 240 Amount Magnesium Sulfate-D5w Pmx 100 1 gm In Dextrose/Water 1 100ml.bag @ 100 mls/hr IVPB Q1H JSOE Rx#: [id number] Sodium Chloride 0.9% 1, 20 160 140 000 ml @ 20 mls/hr IV . Q24H JOSE Rx#:[id number] Oral 240 Output: Urine 107 143 0471 Other: Voiding Method Urinal Urinal Urinal Weight 70.9 kg 70.9 kg - Constitutional General appearance: mild distress - EENT Eyes: EOMI, PERRLA ENT: hearing grossly normal, normal oropharynx - Neck Neck: no lymphadenopathy Thyroid: bilateral: normal size - Respiratory Respiratory: left: diminished - Cardiovascular Rhythm: regular Heart sounds: normal: S1, S2 - Gastrointestinal General gastrointestinal: normal bowel sounds, soft - Neurologic Neurologic: CNII-XII intact - Musculoskeletal Musculoskeletal: generalized weakness - Psychiatric Psychiatric: A&O x's 3, appropriate affect Results CBC & Chem 7: 12/11/16 04:39 12/11/16 04:39 Labs: Abnormal Lab Results - Last 24 Hours (Table) 12/10/16 12/11/16 12/11/16 Range/Units 21:29 04:39 04:39 Hgb 12.3 L (13.0-17.5) gm/dL Hct 37.7 L (39.0-53.0) % Plt Count 148 L (150-450) k/uL Potassium 3.2 L (3.5-5.1) mmol/L Glucose 118 H (74-99) mg/dL POC Glucose (mg/dL) 145 H (75-99) mg/dL Phosphorus 4.7 H (2.5-4.5) mg/dL Chest x-ray: report reviewed CT scan - chest: report reviewed Assessment and Plan (1) Pneumothorax on left Narrative/Plan: The patient was felt to have a tension pneumothorax. Currently he is still short of breath but overall stable. Conservative management was recommended by [facility]. However the patient has a large bulla in this area. Therefore further discussion, it was decided to transfer him to [facility] for further observation. This was in case he didn't need surgical intervention down the line. The above was discussed with the admitting service , and the patient. From our standpoint there is no cord indication to him having any surgical intervention if needed. His blood counts are satisfactory. Status: Acute (2) Esophageal adenocarcinoma Narrative/Plan: The patient's PET scan in 10/30 showed progression in the mediastinum. He was therefore started on monoclonal antibody therapy and has had 1 dose which she tolerated well. Next dose was due next week. This can be delayed if needed. Status: Acute
--- NOTE | 2017-01-12 11:17 | P.DS ---
Providers Date of admission: 12/10/16 19:00 Expected date of discharge: 12/11/16 Attending physician: Manjeet Ornelas Primary care physician: Manjeet [facility] Course: 46-year-old pleasant gentleman one of my office patient of known for 18 years was seen pulmonary Dr. Ortega on regular basis has been seen Dr. Pimentel oncology on regular basis as well. Patient had long-standing history of recurrent pneumothorax with bulla on the surface part of the lung specially the left side had it rupture last time back in 2001 and patient was evaluated that time in [facility] for possibility of lung transplant. Patient has been on disability has not gone back to work since and was very careful so he hasn't had any problem for long time. Patient was diagnosed with esophageal cancer through workup led by the fact that he was having mild dysphagia and significant weight loss his EGD came back positive he ended up going to [facility] had a resection with gastric pull-through and wedge resection of the right upper lobe that was positive for cancer about a year early. Procedure done by Dr. Melendrez at [facility]. Patient was sent back to Dr. Pimentel for chemotherapy which patient has been on since. Patient PET scan last time revealed 1.3 cm nodular in the mid right lung suspicious for malignancy Dr. Pimentel had him on Xalkori chemo. Patient is doing well until 12/06/2016 when he was sleeping in the chair he woke up and felt something pop in the left side of his chest wall with significant discomfort. He waited till Wednesday morning on December 07 when he developed to have significant left-sided pain he was seen Dr. Pimentel and order chest x-ray which revealed massive emphysematous change in the lung with air-filled level consistent with tension pneumothorax. Patient ended up going to see Dr. Golden in and CAT scan of the lung was performed showed large pneumothorax. Apparently Dr. Ortega have spoken with Dr. Melendrez at [facility] who felt at this point he is negative do any's think surgical. Patient was hospitalized through the night in the ICU has been comfortable but his large pneumothorax with tension and slight increase expansion. Talking to pulmonary and tachycardia to the patient felt for patient's best interest that to have him transferred to [facility] because if this pneumothorax and large located related bulla was 2 rupture patient most likely will decline hemodynamically through degree to transfer him to have before the Doppler point would be impossible. We'll contact [facility] transplant team and try to transfer patient to [facility] today 12/11/2016. 12/11: Patient was seen in consultation by Dr. Gutierrez and Dr. Patrick. Patient was transferred to [facility]. Discharge diagnoses: 1 left side tension pneumothorax severe large happen from severe bullous emphysema with rupture one of the bulla on the surface causing the tension pneumothorax this time. No chest tube was placed at this point for patient's best interest specially with his current circumstances patient will be transferred to [facility] for initially conservative management and aggressive thoracic surgery management if the problem become worse. 2 Siewert 1 adenocarcinoma of the esophagus junction post neoadjuvant therapy followed by resection and gastric pull-through follow by systemic chemotherapy. Patient still seen oncology on regular basis. 3 spiculated mass measured 2 cm in the left chest wall has been seen pulmonary and oncology. 4 advance stage III COPD with FEV1 at 32% only: Patient has been on oxygen along with updraft treatment regularly and steroids. 5 hypertension: Has been on Hydrea diarrheal only. 6 hyperlipidemia: Continue Zocor at 20 mg daily. 7 Severe GERD beside his is off she is cancer: Patient has been on omeprazole 40 mg daily. 8 severe ALLERGY: Patient to continue Zyrtec or Claritin daily. 9 chronic pain management: Has been on hydrocodone as needed. 10 DVT prophylaxis: Patient will be on heparin subcutaneous. CODE STATUS: Full code. Impression and plan of care have been directed as dictated by the signing physician. Shirley Parra nurse practitioner acting as scribe for signing physician. Patient Condition at Discharge: Good Plan - Discharge Summary Discharge Medication List Cetirizine HCl [Zyrtec] 10 mg PO DAILY 12/10/16 [History] Fluticasone/Salmeterol [Advair 500-50 Diskus] 1 puff INHALATION RT-DAILY [History] HYDROcodone/APAP 10-325MG [Cherokee 10-325] 1 tab PO Q6H PRN 12/10/16 [History] Hydrochlorothiazide [Hydrodiuril] 25 mg PO DAILY 12/10/16 [History] Ipratropium-Albuterol Nebulize [Duoneb 0.5 mg-3 mg/3 ml Soln] 3 ml INHALATION RT -Q4H PRN 12/10/16 [History] Omeprazole 40 mg PO DAILY 12/10/16 [History] Simvastatin [Zocor] 20 mg PO DAILY 12/10/16 [History] Tiotropium 18 Mcg/Puff [Spiriva] 1 cap INHALATION RT-DAILY 12/10/16 [History] Follow up Appointment(s)/Referral(s): Manjeet Ornelas MD [Primary Care Provider] - 1-2 days Discharge Disposition: TRANSFER TO SHORT [facility]
== END 2016-12-11 14:34 | disposition short-term general hospital (02) | DRG 200 ==
LOC: EC 15:26 → 6ICU 19:00
PROVIDERS: ADMIT Internal Medicine Geriatric Medicine; ATTEND Internal Medicine Geriatric Medicine
DX: J93.0 Spontaneous tension pneumothorax (principal); C16.0 Malignant neoplasm of cardia; Z99.81 Dependence on supplemental oxygen; C78.1 Secondary malignant neoplasm of mediastinum; C78.00 Secondary malignant neoplasm of unspecified lung; I10 Essential (primary) hypertension; K21.9 Gastro-esophageal reflux disease without esophagitis; J98.11 Atelectasis; T45.1X5S Adverse effect of antineoplastic and immunosuppressive drugs, sequela; G62.0 Drug-induced polyneuropathy; E78.5 Hyperlipidemia, unspecified; G89.29 Other chronic pain; J30.9 Allergic rhinitis, unspecified; J44.9 Chronic obstructive pulmonary disease, unspecified; R59.0 Localized enlarged lymph nodes; R53.1 Weakness; R09.02 Hypoxemia; Z87.891 Personal history of nicotine dependence; Z79.899 Other long term (current) drug therapy; Z88.8 Allergy status to other drugs, medicaments and biological substances; Z86.79 Personal history of other diseases of the circulatory system; Z88.6 Allergy status to analgesic agent; Z92.21 Personal history of antineoplastic chemotherapy; Z92.3 Personal history of irradiation; Z87.19 Personal history of other diseases of the digestive system; Z90.49 Acquired absence of other specified parts of digestive tract; Z79.891 Long term (current) use of opiate analgesic; Z79.51 Long term (current) use of inhaled steroids; Z90.2 Acquired absence of lung [part of]
CPT/HCPCS: 36415; 71010; 71020; 71260; 80048; 82550; 82553; 82565; 83735; 84100; 84520; 85025; 85610; 85730; 94640; 99285

== ENCOUNTER → 2016-12-10 | Outpatient (CLI) | payer MEDICARE ==
--- NOTE | 2016-12-10 11:52 | XR ---
EXAMINATION TYPE: XR chest 2V DATE OF EXAM: 12/10/2016 11:42 AM COMPARISON: 07/07/2016 HISTORY: Carcinoma of the esophagus. TECHNIQUE: Single frontal view of the chest is obtained. FINDINGS: Again noted is massive emphysematous change of the left along with air-fluid levels identified. Pleur al reflection is noted left apical region as well as along the left lateral lung and I cannot exclude underlying pneumothorax estimated at 20%. There is no evidence for mediastinal shift. Extensive emph ysematous change right upper lobe noted as well. Resection right-sided rib. Postoperative changes rig ht midlung zone. Cardiomediastinal silhouette is stable. IMPRESSION: 1. Massive emphysematous change left lung with air-fluid levels seen. As noted there appears to be pl eural line within the left apical region extending along the left mid lung zone. I cannot exclude a l oculated pneumothorax. Strict clinical correlation advised.
== END | disposition home or self-care (01) ==
LOC: RADXRMAIN 11:22
PROVIDERS: ATTEND Internal Medicine Hematology & Oncology
DX: C15.5 Malignant neoplasm of lower third of esophagus (principal); J43.9 Emphysema, unspecified; I10 Essential (primary) hypertension
CPT/HCPCS: 71020

== ENCOUNTER → 2018-12-20 | Outpatient (CLI) | payer MEDICARE ==
--- NOTE | 2018-12-20 18:36 | XR ---
EXAMINATION: XR chest 2V DATE AND TIME: 12/20/2018 6:02 PM CLINICAL INDICATION: PHH; J44.9 COPD J90 PE C15 Esophageal CA TECHNIQUE: Departmental protocol COMPARISON: Radiograph 12/11/2016 FINDINGS: Right IJ Port-A-Cath is present, with tip superimposed most over the mid SVC. The extreme lucency over bilateral upper lung zones is more impressive than the prior radiograph. While no visceral line sign can be seen on the right, the lung markings are more difficult to see pre sently and this provides some suspicion for occult pneumothorax on the right. On the left, a gas fluid level is evident on this upright view, suggesting hydropneumothorax has not resolved. Moreover, there is complex added opacity throughout the entire left hemithorax on the prese nt radiograph is compared with the prior radiograph. IMPRESSION: COMPLEX BILATERAL RADIOGRAPHIC FINDINGS; WOULD RECOMMEND CT CHARACTERIZATION AT THIS TIME.
== END | disposition home or self-care (01) ==
LOC: RADXRMAIN 17:44
PROVIDERS: ATTEND Internal Medicine Hematology & Oncology
DX: R91.8 Other nonspecific abnormal finding of lung field (principal); C15.5 Malignant neoplasm of lower third of esophagus; J90 Pleural effusion, not elsewhere classified; B37.0 Candidal stomatitis; J44.9 Chronic obstructive pulmonary disease, unspecified
CPT/HCPCS: 71046

== ENCOUNTER → 2019-01-06 | Outpatient (CLI) | payer MEDICARE ==
--- NOTE | 2019-01-06 14:59 | XR ---
EXAMINATION TYPE: XR chest 2V DATE OF EXAM: 01/06/2019 COMPARISON: Prior chest x-ray dated 12/20/2018 and 01/02/2018 HISTORY: Esophageal carcinoma, fever TECHNIQUE: Frontal and lateral views of the chest are obtained. FINDINGS: There is an air-fluid level in the apical change on the left, there is also air-fluid leve l at the left costophrenic angle with increased opacity now seen on prior. Extensive abnormal pleural parenchymal changes are again seen, bilateral lung nodules. Extensive bullous emphysematous changes and postop changes are noted. Heart is secured. IMPRESSION: Difficult to exclude an infected bulla. The could be underlying pneumonia.
== END | disposition home or self-care (01) ==
LOC: RADXRMAIN 14:06
PROVIDERS: ATTEND Nurse Practitioner Adult Health
DX: R91.8 Other nonspecific abnormal finding of lung field (principal); C15.5 Malignant neoplasm of lower third of esophagus; J90 Pleural effusion, not elsewhere classified; J44.9 Chronic obstructive pulmonary disease, unspecified
CPT/HCPCS: 71046